=== PATIENT | female | born 1960 | race African-American/Black ===

== ENCOUNTER 2016-12-15 17:23 | Emergency (ER) | payer OTHER ==
[2016-12-15 17:39] VITALS: BP 129/71; PULSE 70; TEMP 99; BMI 29.8
[2016-12-15] MEDS ORDERED: ALBUTEROL SO4 0.083% IH SOL 2.5 MG/3 ML VIAL.NEB. NEB ONE (17:40)
--- NOTE | 2016-12-15 17:42 | PDOC ---
Rapid Medical Evaluation Chief Complaint: Chest Pain Time Seen by Provider: 12/15/16 17:36 Medical Evaluation: Allergies Allergy/AdvReac Type Severity Reaction Status Date / Time No Known Allergies Allergy Verified 12/15/16 17:39 Vital Signs Temp Pulse Resp BP Pulse Ox 99.0 F 70 16 129/71 97 12/15/16 17:36 12/15/16 17:36 12/15/16 17:36 12/15/16 17:36 12/15/16 17:36 12/15/16 17:41 RME Note: I have performed a brief, in-person evaluation of this patient . This patient presents with CC: cough, chest congesion x 1 week, no fever Pertinent PE findings are: wheezing; I have ordered: EKG, albuterol, chest xray The patient will proceed to ED for further evaluation.
--- NOTE | 2016-12-15 19:03 | PDOC ---
History of Present Illness - General Chief Complaint: Chest Pain Stated Complaint: CHEST TIGHTNESS/BRONCHITIS Time Seen by Provider: 12/15/16 17:36 History Source: Patient Exam Limitations: No Limitations - History of Present Illness Initial Comments: CHIEF COMPLAINT: 56 y/o afebrile female with PMH bronchitis c/o chest tightness and dry cough x 1 week. HISTORY OF PRESENT ILLNESS: She has been using her albuterol inhaler twice a day with little relief. She thinks she had a fever yesterday. She states she has a history of bronchitis and that's what her symptoms feel like. She denies chills, CASTILLO, n/v/d, productive cough, abd pain, back pain. Vital signs on arrival are within normal limits. REVIEW OF SYSTEMS: GENERAL/CONSTITUTIONAL: Subjective fever yesterday. No chills. No weakness. No weight change. HEAD, EYES, EARS, NOSE AND THROAT: No change in vision. No ear pain or discharge. No sore throat. CARDIOVASCULAR: +chest tightness and SOB. RESPIRATORY: +dry cough. No wheezing, or hemoptysis. GASTROINTESTINAL: No abd pain, nausea, vomiting, diarrhea. GENITOURINARY: No dysuria, frequency, or change in urination. MUSCULOSKELETAL: No joint or muscle swelling or pain. No neck or back pain. SKIN: No rash or easy bruising. NEUROLOGIC: No headache, vertigo, loss of consciousness, or loss of sensation. PHYSICAL EXAM: GENERAL: The patient is awake, alert, and fully oriented, in no acute distress. SHe is well appearing without cough in the ER. HEAD: Normal with no signs of trauma. ENT: Pupils equal, round and reactive to light, extraocular movements intact, sclera anicteric, conjunctiva clear. Neck supple. LUNGS: Clear to auscultation bilaterally. Normal excursion. No respiratory distress or use of accessory muscles. CV: RRR, S1/S2, no MRG. Cap refill < 2 sec. ABDOMEN: Soft, non-distended, non-tender even to deep palpation, no hepatomegaly or splenomegaly, no masses. EXTREMITIES: Normal range of motion, no edema. NEUROLOGICAL: Normal speech, normal gait. CN II-XII grossly intact. PSYCH: Normal mood, normal affect. SKIN: Warm, dry, normal turgor, no rashes or lesions noted. Past History - Past Medical History Allergies/Adverse Reactions: Allergies Allergy/AdvReac Type Severity Reaction Status Date / Time No Known Allergies Allergy Verified 12/15/16 17:39 Home Medications: Ambulatory Orders Azithromycin [Zithromax 250mg Tablets -] 250 mg PO UTDICT #6 tab 12/15/16 Prednisone [Deltasone -] 40 mg PO DAILY #8 tablet 12/15/16 Other medical history: PT DENIES MEDICAL HX - Psycho/Social/Smoking Cessation Hx Suicidal Ideation: No Smoking History: Never smoked Hx Alcohol Use: Yes (OCCASIONALLY) Drug/Substance Use Hx: No *Physical Exam - Vital Signs Last Vital Signs Temp Pulse Resp BP Pulse Ox 99.0 F 70 16 129/71 97 12/15/16 17:36 12/15/16 17:36 12/15/16 17:36 12/15/16 17:36 12/15/16 17:36 ED Treatment Course - Medications Given in the ED: ED Medications Discontinued Medications Generic Name Dose Route Start Last Admin Trade Name Freq PRN Reason Stop Dose Admin Albuterol Sulfate 1 amp 12/15/16 17:40 12/15/16 17:52 Ventolin 0.083% Nebulizer Soln - NEB 12/15/16 17:41 1 amp ONCE ONE Administration Medical Decision Making - Medical Decision Making A/P: 56 y/o female, non-smoker, with 1 week of dry cough and chest tightness with hx of bronchitis. Plan is as follows: 1. EKG 2. CXR 3. Albuterol neb EKG -normal sinus rhythm CXR IMPRESSION (wet read): bronchitis. No pneumothorax or consolidation. Will discharge the patient with a zpack and 4 day course of prednisone. Instructed her to continue using the inhaler as prescribed. Instructed her to drink plenty of fluids and return to the ER with any worsening or concerning symptoms. The patient verbalizes understanding of all instructions, has no further questions and is awaiting discharge. *DC/Admit/Observation/Transfer Diagnosis at time of Disposition: Bronchitis - Discharge Dispostion Disposition: HOME Condition at time of disposition: Good - Referrals Referrals: Chata Modi MD [Primary Care Provider] - - Patient Instructions Printed Discharge Instructions: DI for Acute Bronchitis Additional Instructions: Discharge Instructions: -Continue using inhaler as prescribed -Take Azithromycin and Prednisone as prescribed; both were sent to your pharmacy -Drink plenty of fluids -Return to the ER with any worsening or concerning symptoms - Post Discharge Activity Work/School Note: Back to Work
[2016-12-15] MEDS ORDERED: predniSONE 20 MG TABLET (UD) PO ONE (19:42)
[2016-12-15] MEDS ORDERED: predniSONE 20 MG TABLET (UD) ONE (19:45)
--- NOTE | 2016-12-16 12:04 | EKG ---
Test Reason : Blood Pressure : / mmHG Vent. Rate : 066 BPM Atrial Rate : 066 BPM P-R Int : 126 ms QRS Dur : 076 ms QT Int : 384 ms P-R-T Axes : 056 008 -02 degrees QTc Int : 402 ms NORMAL SINUS RHYTHM NORMAL ECG NO PREVIOUS ECGS AVAILABLE Confirmed by CARLITOS MUÑOZ MD ([id number]) on 12/16/2016 12:03:50 PM Referred By: ELIZABET Confirmed By:CARLITOS MUÑOZ MD
== END 2016-12-15 19:50 | disposition home or self-care (01) ==
LOC: JERFT 17:23
PROC: 3E0F7GC Introduction of Other Therapeutic Substance into Respiratory Tract, Via Natural or Artificial Opening (ICD-10-PCS; principal; 2016-12-15)
DX: J40 Bronchitis, not specified as acute or chronic (principal)
CPT/HCPCS: 71020-TC; 93005; 93010; 94640; 99281-25